=== PATIENT | male | born 1955 | race Caucasian/White ===

== ENCOUNTER 2023-11-27 15:28 | Emergency (ER) | payer MEDICARE, BC ==
[2023-11-27] MEDS: Sodium Phosphate,Monobasic/Sodium Phosphate,Dibasic Enema 133 ML Bottle RECTAL ONE (16:47)
[2023-11-27] MEDS: Magnesium Citrate Solution 296 ML Bottle PO ONE (18:01)
== END 2023-11-27 18:20 | disposition home or self-care (01) ==
LOC: JP.ED 15:28
DX: K59.00 Constipation, unspecified (principal); I10 Essential (primary) hypertension; E11.9 Type 2 diabetes mellitus without complications
CPT/HCPCS: 99283; A9270